=== PATIENT | female | born 1975 | race Caucasian/White ===

== ENCOUNTER 2021-07-08 14:30 | Outpatient (CLI) | payer OTHER, SELFPAY ==
--- NOTE | ~2021-07-08 | MM_ITS ---
EXAMINATION: MM screening [facility] BI w martha HISTORY: Screening mammogram TECHNIQUE: Craniocaudal and mediolateral oblique 3-D tomosynthesis images were obtained and synthetic 2-D images were generated. CAD analysis was submitted and interpreted. COMPARISON: 06/02/2008 BREAST PARENCHYMAL COMPOSITION: The breasts are extremely dense, which lowers the sensitivity of mamm ography. FINDINGS: Scattered benign-appearing calcifications are present. There is no evidence of suspicious m ass, calcification, or architectural distortion to suggest malignancy in either breast. There has bee n no suspicious interval change. IMPRESSION: 1. No mammographic evidence of malignancy. 2. Recommend routine screening mammography in one year. BI-RADS Category 2: Benign finding(s). Reviewed, dictated and finalized at location A. CTOR AND PROFESSOR
== END 2021-07-08 14:31 | disposition home or self-care (01) ==
LOC: ANHIMG 14:33
PROVIDERS: PCP Physician Assistant; Visit Provider Physician Assistant
DX: Z12.31 Encounter for screening mammogram for malignant neoplasm of breast (principal)
CPT/HCPCS: 77063; 77067

== ENCOUNTER 2022-11-22 07:20 | Outpatient (CLI) | payer OTHER, SELFPAY ==
--- NOTE | ~2022-11-22 | MM_ITS ---
EXAMINATION: MM screening [facility] BI w martha HISTORY: Screening mammogram TECHNIQUE: Craniocaudal and mediolateral oblique 3-D tomosynthesis images were obtained and synthetic 2-D images were generated. CAD analysis was submitted and interpreted. COMPARISON: 07/08/2021, 06/02/2008 BREAST PARENCHYMAL COMPOSITION: The breasts are heterogeneously dense, which may obscure small masses . FINDINGS: Scattered benign-appearing calcifications are present. A hamartoma is noted posteriorly in the right breast. No suspicious mass, calcification, or architectural distortion are identified in ei ther breast to suggest malignancy. There has been no suspicious interval change. IMPRESSION: 1. No mammographic evidence of malignancy. 2. Recommend routine screening mammography in one year. BI-RADS Category 2: Benign finding(s). Reviewed, dictated and finalized at location A.
== END 2022-11-22 07:21 | disposition home or self-care (01) ==
LOC: ANHIMG 07:26
PROVIDERS: PCP Physician Assistant; Visit Provider Physician Assistant
DX: Z12.31 Encounter for screening mammogram for malignant neoplasm of breast (principal)
CPT/HCPCS: 77063; 77067

== ENCOUNTER 2023-10-02 13:18 | Outpatient (CLI) | payer OTHER, SELFPAY ==
--- NOTE | ~2023-10-02 | US_ITS ---
US venous doppler LE RT DATE: 10/02/2023 13:42 INDICATION: Right lower extremity pain. Bruise of the lateral proximal calf. TECHNIQUE: Real-time and color flow imaging and Doppler analysis of the veins of the right lower extr emity COMPARISON: None FINDINGS: The right deep veins are patent, without evidence of intraluminal thrombus. There is normal compression and augmentation and color flow signal. IMPRESSION: No evidence of deep venous thrombosis of right lower extremity Reviewed, dictated and finalized at Location A. Reviewed, dictated and finalized at location B.
== END 2023-10-02 13:19 ==
PROVIDERS: PCP Physician Assistant; Visit Provider Obstetrics & Gynecology
DX: M79.604 Pain in right leg (principal)
CPT/HCPCS: 93971

== ENCOUNTER 2024-02-05 08:49 | Outpatient (CLI) | payer BC, SELFPAY ==
--- NOTE | ~2024-02-05 | MMUS_ITS ---
EXAMINATION: MM diagnostic [facility] BI w martha, US breast LT limited HISTORY: Palpable abnormality after recent workup in the left breast TECHNIQUE: Additional 3-D tomosynthesis images of the breasts were performed and synthetic 2-D images were generated. CAD analysis was submitted and interpreted. High resolution Limited left breast ultr asound was performed. COMPARISON: Comparison to multiple prior studies sequentially, with oldest reviewed study dated 06/17. BREAST PARENCHYMAL COMPOSITION: Dense: The breasts are extremely dense, which lowers the sensitivity of mammography. FINDINGS: MAMMOGRAPHIC FINDINGS: There are no suspicious masses, calcifications or architectural distortion in either breast to sugges t malignancy. ULTRASOUND: Limited left breast ultrasound: At 1:00, 7 cm from the nipple there is a cluster of cysts measuring 5 mm. At 1:00, 7 cm from the nipple in the area of palpable concern there is an irregular shaped hypoe choic mass with parallel orientation, mixed posterior attenuation and no internal vascularity measuri ng 6 x 5 x 5 mm. IMPRESSION: 1. Irregular shaped cystic mass measuring 6 mm at 1:00, 7 cm from the nipple. 2. Ultrasound-guided left breast cyst aspiration recommended. If no fluid obtained, conversion to bio psy recommended. BI-RADS category 4, suspicious findings. Reviewed, dictated and finalized at location B. IMPRESSION: 1. Irregular shaped cystic mass measuring 6 mm at 1:00, 7 cm from the nipple. 2. Ultrasound-guided left breast cyst aspiration recommended. If no fluid obtai manuelito, conversion to biopsy recommended. BI-RADS category 4, suspicious findings.
== END 2024-02-05 08:50 | disposition home or self-care (01) ==
LOC: CHSIMG 08:53
PROVIDERS: PCP Physician Assistant; Visit Provider Student in an Organized Health Care Education/Training Program
DX: N63.21 Unspecified lump in the left breast, upper outer quadrant (principal); R92.8 Other abnormal and inconclusive findings on diagnostic imaging of breast
CPT/HCPCS: 76642; 77062; 77066; G0279

== ENCOUNTER 2025-03-04 01:07 | Day surgery (SDC) | payer OTHER, SELFPAY ==
[2025-02-27 10:41] VITALS: BMI 20.1
--- OUTSIDE RECORDS SUMMARY | 2025-03-04 01:11 | XMS_ITS | Clinical Summary ---
Author Organization [facility] Address [address] [place] [address] Phone Care Team Providers Care Body Trimmer Name Role Phone OrestesmartineNancy Primary Care Pr ovider Schuyler Louise MD Unavailable [phone] Allergies No known active allergies Medications No known medications Active Problems Problem Noted Date Diagnosed Date Benign neoplastic disease 09/17/2014 Social History Tobacco Use Types Packs/Day Years Used Date Smoking Tobacco: Never Assessed Comments Unknown Sex and Gender Information Value Date Recorded Sex Assigned at Not on file 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 Gender Identity Not on file Sexual Orientation Not on file Obstetrics History Last Filed Vital Signs Vital Sign Reading Time Taken Comments Blood Pressure - - Pulse - - Temperature - - Respiratory Rate - - Oxygen Saturation - - Inhaled Oxygen Concentration - - Weight 64 kg (141 lb) 11/18/2024 8:45 AM CDT Height 177.8 cm (5' 10) 11/18/2024 8:45 AM CDT Body Mass Index 20.23 11/18/2024 8:45 AM CDT Plan of Treatment Health Maintenance Due Date Last Done Comments Breast Cancer Screening-Mammogram 1976 Cervical Cancer Screening 1976 Colon Cancer Screening-Colonoscopy 1976 Depression Screening 1976 Hepatitis C Screening 1976 DTaP/Tdap/Td Vaccine (1 - Tdap) 01/13/1987 Hepatitis B Screening 01/13/1994 Regular Well Visit/Exam 18-64 01/13/1994 Influenza Vaccine (#1) 2025 0, 04/22/2016 Pneumococcal vaccine <65 Aged Out No longer eligible based on patient's age to complete this topic Insurance [employer] Care Teams Body Trimmer Relationship Specialty Start Date End Date Nancy Shaw PA PCP - General Physician [employer] 01/18/18 Schuyler Louise MD [address] [place] [address] Consulting Physician Obstetrics and Gynecology 02/05/24
--- OUTSIDE RECORDS SUMMARY | 2025-03-04 01:11 | XMS_ITS | Encounter Summary ---
Author Organization [facility] Address [address] [place] [address] Care Team Providers Care Gas Pit Worker Name Role Phone Unavailable Primary Care Provider Unavailabl e Reason for Visit * Diagnostic Imaging (Routine) - Pending Review Specialty Diagnoses / Procedures Referred By Contac t Referred To Contact Procedures Breast Imaging Diagnostic Outside Reference Transcribed Order, Provider Referral ID Status Reason Start Date Expiration Date V isits Requested Visits Authorized [id number] Pending Review 02/26/2024 03/27/2025 1 1 Encounter Details Date Type Department Care Team (Late st Contact Info) Description 06/02/2008 Hospital Encounter [facility] [address] [place] [id number] Social History Tobacco Use Types Packs/Day Years Used Date Smoking Tobacco: Never Assessed Comments Unknown Sex and Gender Information Value Date Recorded Sex Assigned at Not on file Legal Sex Female 5:32 AM RADIO DISC JOCKEY Gender Identity Not on file Sexual Orientation Not on file documented as of this encounter Plan of Treatment Not on file documented as of this encounter Procedures Procedure Name Priority Date/Time Associated Diagnosis Comments BREAST IMAGING MG DIAGNOSTIC OUTSIDE REFERENCE Routine 06/02/2008 12:00 AM RADIO DISC JOCKEY documented in this encounter Results * Breast Imaging Diagnostic Outside Reference (06/02/2008 12:00 AM RADIO DISC JOCKEY) Impressions [facility]MO[facility] - 02/26/2024 11:46 AM CDT These images are for Reference purposes only and have not been reviewed by [facility] Radiology. There will be no report generated by a [facility] Radiologist. Narrative [facility]_MAMMO[facility] - 02/26/2024 11:46 AM CDT EXAMINATION: Images For Reference Purposes Only us Provider Transcribed Order IMG MAMMO PROCEDURES Final Result [facility]_MAMMO[facility] documented in this encounter Visit Diagnoses Not on filedocumented in this encounter
--- OUTSIDE RECORDS SUMMARY | 2025-03-04 01:11 | XMS_ITS | Clinical Summary ---
Author Organization [facility] Address [address] [place] [address] Care Team Providers Care Ham Rolling Machine Operator Name Role Phone Florencia Oliver DO Unavailable Breanna Tom APRN-SENIOR EDUCATION SPECIALIST Unavailable [phone] Nancy June Primary Care Pr ovider Angie Sanchez MD Unavailable [phone] Source Comments [facility],non-owned Affiliates and Associated Physician Practices is amultiple site organization consisting of ambulatory clinics and hospital sitesin [place] and [place]. This disclosure is being madepursuant to the Care Everywhere program and may not contain all information available regarding this patient. Last updated 18.[facility] Allergies No known active allergies Medications * Be aware that medications may not be up to date on this document. Alwaysverify current medications with the patient. magnesium 30 MG tablet Take 1 (one) tablet by mouth once daily Active [place]-3 Fatty Acids (fish oil) 500 MG capsule Take by mouth 2 times daily Active Turmeric 5-1000 MG CAPS Activ e estradiol (Climara) 0.05 MG/24HR patch APPLY 1 PATCH TRANSDERMALLY WEEKLY 4 Active Progesterone 200 MG capsule 3 Active clarithromycin (Biaxin) 500 MG tablet TAKE 1 TABLET BY MOUTH EVERY 12 HOURS WITH MEALS Active Active Problems No known active problems Encounters Date Type Department Care Team Description 01/06/2025 Orders Only [facility] - Surgery [address] [place] [address] Sqrow, Breanna R, VAT OPERATOR-SENIOR EDUCATION SPECIALIST Extremely dense tissue of both breasts on mammography from Last 3 Months Social History Tobacco Use Types Packs/Day Years Used Date Smoking Tobacco: Never Smokeless Tobacco: Never Tobacco Cessation:Counseling Given: Not Answered Comments No Sex and Gender Information Value Date Recorded Sex Assigned at Not on file Legal Sex Female 5:00 AM NAPHTHALENE OPERATOR Gender Identity Not on file Sexual Orientation Not on file Last Filed Vital Signs Vital Sign Reading Time Taken Comments Blood Pressure - - Pulse - - Temperature - - Respiratory Rate - - Oxygen Saturation - - Inhaled Oxygen Concentration - - Weight 64 kg (141 lb) 11/26/2024 10:00 AM CDT Height 177.8 cm (5' 10) 11/26/2024 10:00 AM CDT Body Mass Index 20.23 11/26/2024 10:00 AM CDT Plan of Treatment Upcoming Encounters Date Type Department Care Team (Late st Contact Info) Description 06/02/2025 10:30 AM NAPHTHALENE OPERATOR Appointment [facility] - Ultrasound [address] [place] [address] Health Maintenance Due Date Last Done Comments COLOGUARD (AGES 45-75) - COL ON CA SCREENING 1976 COLON MONITORING 1976 COLONOSCOPY - COLON CA SCREENING 1976 CT COLONOGRAPHY - COLON CA SCREENING 1976 Colorectal Cancer Screening 1976 FIT - COLON CA SCREENING 1976 FLEX SIG - COLON CA SCREENING 1976 HIV SCREENING 01/13/1991 HEPATITIS C SCREENING 01/09/1994 DTAP/TDAP/TD VACCINES (1 - Tdap) 01/13/1995 HEPATITIS B VACCINE (1 of 3 - 19+ 3-dose series) 01/13/1995 PAP SMEAR 02/12/2022 02/12/2019 COVID-19 VACCINE (1 - 2023-2 5 season) 2024 DEPRESSION SCREENING 07/17/2024 INFLUENZA VACCINE (#1) 2025 , 04/22/2016 ZOSTER VACCINE (1 of 2) 01/13/2026 MAMMOGRAM 11/26/2026 11/26/2024, 02/05/2024 LIPID TESTING 10/17/2029 10/17/2024 HIB VACCINE Aged Out No longer eligi ble based on patient's age to complete this topic HPV VACCINE Aged Out No longer eligi ble based on patient's age to complete this topic MENINGOCOCCAL (Group B) VACCINE SHARED DECISION-MAKING Aged Out No longer eligible based on patient's age to complete this topic MENINGOCOCCAL GROUPS A/C/Y/W VACCINE Aged Out No longer eligible b ased on patient's age to complete this topic Procedures Procedure Name Priority Date/Time Associated Diagnosis Comments MAMMO BILAT SCREENING [place] STAT 11/26/2024 10:03 AM CDT Encounter for screening mammogram for malignant neoplasm of breast from Last 3 Months or Most Recently Relevant to Health Maintenance Results * Mammo Bilat Screening [place] (11/26/2024 10:03 AM CDT) Anatomical Region Laterality Modality Breast Bilateral Mammography 11/26/2024 10:2 3 AM CDT Impressions 11/26/2024 10:25 AM CDT IMPRESSION: Annual screening mammography is recommended. OVERALL FINAL ASSESSMENT: BI-RADS Category 1: Negative. > Interpreting Provider: Kaleb Miller MD on 11/26/2024 10:25 AM Narrative 11/26/2024 10:25 AM CDT EXAMINATION: BILATERAL DIGITAL SCREENING MAMMOGRAM AND BILATERAL BREAST TOMOSYNTHESIS HISTORY: Screening. COMPARISON: Serial examinations dating back to July 08, 2021. TECHNIQUE: BILATERAL digital breast tomosynthesis (DBT) and synthetic 2D digital mammogram images were obtained (bilateral craniocaudal and mediolateral oblique projections) including computer aided detection (CAD.) BREAST PARENCHYMAL COMPOSITION:Category D: The breasts are extremely dense which lowers the sensitivity of mammography. MAMMOGRAM FINDINGS: There is no suspicious finding in either breast. us Breanna Tom VAT OPERATOR-SENIOR EDUCATION SPECIALIST MAMMO ORDERABLES Final R esult from Last 3 Months or Most Recently Relevant to Health Maintenance Insurance ANTHEM Care Teams Ham Rolling Machine Operator Relationship Specialty Start Date End Date Nancy June PA [address] [place] [address] PCP - General Physician Offset Printer 03/07/24 Florencia Oliver DO [address] [place] [address] Physician Surgery 02/19/24 Breanna Tom, VAT OPERATOR-SENIOR EDUCATION SPECIALIST [address] [place] [address] Nurse Practitioner Nurse Practitioner [facility] 02/19/24 Angie Sanchez MD [address] [place] [id number] Obstetrics and Gynecology 03/07/24
[2025-03-04 08:31] VITALS: BP 119/78; PULSE 77; RESP 18; TEMP 36.4; O2SAT 99
[2025-03-04] MEDS: LACTATED RINGERS 1,000 ML 150 ML IV CONT (08:42)
--- NOTE | 2025-03-04 08:51 | P.PNAN_ITS ---
Anes - Initial Pre Proc Eval Procedure: Operation Date: 03/04/25 09:30 Proposed Procedures p Diagnostic Colonoscopy - Jose Francisco Romano MD Date/Time: 03/04/25 08:51 Surgeon: Jose Francisco Romano MD Pre Op Diagnosis: other fecal abnormalities Patient Data Age: 50 Gender: F Height: 1.78 m Weight: 62.6 kg Last Vital Signs Temp 36.4 C L 03/04/25 08:31 Pulse 77 03/04/25 08:31 Resp 18 03/04/25 08:31 BP 119/78 03/04/25 08:31 Pulse Ox 99 03/04/25 08:31 O2 Del Method Room Air 03/04/25 08:31 Allergies Allergy/AdvReac Type Severity Reaction Status Date / Time No Known Allergies Allergy Mild Verified 03/04/25 08:31 Home Medications ?Medication ?Instructions ?Recorded ?Confirmed ?Type Lactobacillus 1 cap PO DAILY 08/12/24 08/0 12/08 History acidophilus-Bifidobac.animalis 2.5 billion cell capsule (Daily Probiotic) progesterone micronized 200 mg 200 mg PO QHS 90 days # 90 caps 02/24/25 02/27/25 Rx capsule estradiol 0.05 mg/24 hr weekly See Rx Instructions .Ro [place] 02/25/25 02/27/25 Rx transdermal patch .COMPLEX #12 patches Patient hx anesthesia problems: none Family hx anesthesia problems: none Results Review: All pre-operative results and documents have been reviewed as part of the pre- operative evaluation. [facility] Past Medical History Medical History (Updated 03/04/25 @ 09:05 by Jose Francisco Romano MD) Blood in stool Surgical History Surgical History H/O breast biopsy History of endometrial ablation Family History Family History Other Acute arthritis Depression Hypertension Lupus Social History Social History (Updated 08/12/24 @ 14:04 by Lewis Lambert MA) Smoking status: Never smoker Alcohol intake: current Drinks per week: 2 Alcohol use details: socially Substance use: never Substance use type: does not use Current Housing: Decline to Answer Concerned About Future Housing: Decline to Answer Difficulty Paying Gas/Electric Bills: Decline to Answer Difficulty Paying for Meds: Decline to Answer Currently Unemployed: Decline to Answer Education: Decline to Answer Difficulty w/ Childcare or Family Care: Decline to Answer Living arrangements: with family 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 Gender identity (if verbalized by the patient): Female Sexual Orientation (if Verbalized by the Patient): Straight or Heterosexual Spiritual care concerns: No Anes - Eval Final PreProcedure Day of Procedure 03/04/25 08:51 Patient weight: normal Heart: regular rate and rhythm Lungs: clear to auscultation and normal air movement Airway: Mallampati scale class II Neurological: alert and oriented Last oral intake: >/= 8 hours ASA classification: I Emergent: no Anesthetic plan: proceed Anesthesia type and monitoring: general GIVS and standard monitoring Results Review: All pre-operative results and documents have been reviewed as part of the pre- operative evaluation. Informed Consent: The patient's anesthetic plan and its attendant risks and benefits were discusse d with the patient/family/POA. Questions were solicited and answers provided to the satisfaction of the patient/family/POA.
--- NOTE | 2025-03-04 09:04 | P.HP_ITS ---
History of Present Illness History of Present Illness Consent: Risks, benefits, and alternatives have been discussed and questions answered. Patient agrees to proceed with procedure. Chief complaint: other fecal abnormalities Narrative: Ciara Rodriguez is a 50 year old female with blood in stool, had colonoscopy few years ago Review of Systems Review of Systems: All systems reviewed & are unremarkable except as noted in HPI and below PMFSH Past Medical History Medical History (Updated 03/04/25 @ 09:05 by Jose Francisco Romano MD) Blood in stool Surgical History Surgical History H/O breast biopsy History of endometrial ablation Family History Family History Other Acute arthritis Depression Hypertension Lupus Social History Social History (Updated 08/12/24 @ 14:04 by Lewis Lambert MA) Smoking status: Never smoker Alcohol intake: current Alcohol use details: socially Substance use: never Substance use type: does not use Current Housing: Decline to Answer Concerned About Future Housing: Decline to Answer Difficulty Paying Gas/Electric Bills: Decline to Answer Difficulty Paying for Meds: Decline to Answer Currently Unemployed: Decline to Answer Education: Decline to Answer Difficulty w/ Childcare or Family Care: Decline to Answer Living arrangements: with family 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 Gender identity (if verbalized by the patient): Female Sexual Orientation (if Verbalized by the Patient): Straight or Heterosexual Meds Home Medications and Allergies Home Medications ?Medication ?Instructions ?Recorded ?Confirmed ?Type Lactobacillus 1 cap PO DAILY 08/12/2412/08 History acidophilus-Bifidobac.animalis 2.5 billion cell capsule (Daily Probiotic) progesterone micronized 200 mg 200 mg PO QHS 90 days # 90 caps 02/24/25 02/27/25 Rx capsule estradiol 0.05 mg/24 hr weekly See Rx Instructions .Ro [place] 02/25/25 02/27/25 Rx transdermal patch .COMPLEX #12 patches Allergies Allergy/AdvReac Type Severity Reaction Status Date / Time No Known Allergies Allergy Mild Verified 03/04/25 08:31 Vital Signs Vital Signs - 24 hr 03/04/25 08:31 Temperature 97.5 F L Pulse Rate 77 Respiratory Rate 18 Blood Pressure 119/78 Pulse Oximetry 99 Oxygen Delivery Room Air Exam Const: General: comfortable and no acute distress HENMT: Face/Nose/Sinus: Normal nares present Eyes: General: appearance normal, both eyes and all related structures Neck: Neck: no JVD Resp: Auscultation: clear to auscultation bilaterally Cardio: Rate: regular rate Rhythm: regular rhythm GI: Inspection: non-distended GI Palp: Yes Soft to palpation Skin: General skin exam: normal color Neuro: General: gait normal Speech: normal speech Extrem: General: normal to inspection Psych: Mental Status: mental status grossly normal Assessment and Plan Assessment and plan (1) Blood in stool: Code(s): K92.1 - Melena Status: Acute Assessment and Plan: colonoscopy
[2025-03-04 09:17] VITALS: BP 92/51; PULSE 66; RESP 21; O2SAT 100
[2025-03-04 09:18] LABS: BEDSIDEPREGUCG Negative (Negative)
--- NOTE | 2025-03-04 09:23 | SUR.OPER ---
Sigmoid Polyp not retrieved. Dr. Zabala aware.
[2025-03-04 09:27] VITALS: BP 116/63; PULSE 60; RESP 20; O2SAT 100
[2025-03-04 09:37] VITALS: BP 114/68; PULSE 56; RESP 19; O2SAT 100
== END 2025-03-04 09:49 | disposition home or self-care (01) ==
PROVIDERS: Referring Provider Physician Assistant; Visit Provider Internal Medicine Gastroenterology
PROC: 0DJD8ZZ Inspection of Lower Intestinal Tract, Via Natural or Artificial Opening Endoscopic (ICD-10-PCS; CPT 45378; principal; 2025-03-04 09:30)
DX: K63.5 Polyp of colon (principal); K64.8 Other hemorrhoids; Z98.891 History of uterine scar from previous surgery
CPT/HCPCS: 45385; J2704; J7120